=== PATIENT | male | born 1980 | race Caucasian/White ===

== ENCOUNTER 2021-12-29 06:13 | Day surgery (SDC) | payer SELFPAY ==
[2021-12-28 10:50] LABS: BASOPHILS # (AUTO) 0.1 K/uL (0.00-0.22); BASOPHILS % (AUTO) 1.2 % (0.0-2.0); EOSINOPHILS # (AUTO) 0.1 K/uL (0-0.4); EOSINOPHILS % (AUTO) 2.4 % (0.0-4.0); HEMATOCRIT 48.1 % (36-52); HEMOGLOBIN 16.1 g/dL (12.0-18.0); LYMPHOCYTES # (AUTO) 2.4 K/uL (2.0-11.5); LYMPHOCYTES % (AUTO) 43.2 % (20.5-51.1); MEAN CORPUSCULAR HEMOGLOBIN 29 pg (27-31); MEAN CORPUSCULAR HGB CONC 34 g/dL (33-37); MEAN CORPUSCULAR VOLUME 87.2 fL (80-94); MONOCYTES # (AUTO) 0.5 K/uL (0.8-1.0); MONOCYTES % (AUTO) 8.1 % (1.7-9.3); NEUTROPHILS # (AUTO) 2.5 K/uL (1.8-7.7); NEUTROPHILS % (AUTO) 45.1 % (42.2-75.2); PLATELET COUNT (AUTO) 296 K/uL (140-450); RED BLOOD CELL COUNT(AUTO) 5.52 MIL/uL (4.20-6.10); RED CELL DISTRIBUTION WIDTH 14.1 % (11.6-13.7); WHITE BLOOD COUNT (AUTO) 5.6 K/uL (4.8-10.8)
[2021-12-28 11:05] LABS: ANION GAP 10.7 (8-16); CARBON DIOXIDE 31.1 mmol/L (21-32); CREATININE 0.9 mg/dL (0.6-1.3); POTASSIUM 5.8 mmol/L (3.5-5.1)
[~2021-12-29] VITALS: Ht 185.4 cm; Wt 142.0 kg
[2021-12-29] MEDS ORDERED: BUPIVACAINE-MPF 0.25% 30 ML VIAL INJ ONE (07:55)
[2021-12-29] MEDS ORDERED: LIDOCAINE 1% 500 MG/50 ML VIAL ONE (07:55)
[2021-12-29] MEDS ORDERED: ALBUTEROL 0.083% 2.5 MG/3 ML NEBU INH PRN (09:10)
[2021-12-29] MEDS ORDERED: ALBUTEROL 0.083% 2.5 MG/3 ML NEBU INH ONE (09:11)
--- NOTE | 2021-12-29 09:11 | NUR ---
CALLED FOR BREATHING TX STAT FOR OR PT.
[2021-12-29] MEDS ORDERED: SEVOFLURANE 250 ML BTL INH ONE (09:17)
[2021-12-29] MEDS ORDERED: LIDOCAINE/EPI MPF 1%1:200000 30 ML VIAL INJ ONE (09:33)
[2021-12-29] MEDS ORDERED: PROPOFOL 200 MG/20 ML VIAL IV ONE ×2 (09:57)
[2021-12-29] MEDS ORDERED: SUCCINYLCHOLINE CHLORIDE 200 MG/10 ML VIAL IVP ONE (09:57)
[2021-12-29] MEDS ORDERED: KETOROLAC 30 MG/ML VIAL ONE (09:58)
[2021-12-29] MEDS ORDERED: ONDANSETRON 4 MG/2 ML VIAL ONE (09:58)
[2021-12-29] MEDS ORDERED: LABETALOL 20 MG/4 ML VIAL IVP PRN (10:25)
[2021-12-29] MEDS ORDERED: diphenhydrAMINE 50 MG/ML VIAL IVP PRN (10:25)
[2021-12-29] MEDS ORDERED: METOCLOPRAMIDE 10 MG/2 ML INJ VIAL IVP PRN (10:25)
[2021-12-29] MEDS ORDERED: LACTATED RINGERS 1,000 ML IV PRN (10:25)
[2021-12-29] MEDS ORDERED: hydrALAZINE 20 MG/ML VIAL IVP PRN (10:27)
[2021-12-29] MEDS: HYDROmorphone 1 MG/ML AMP IVP PRN ×3 (10:56→11:16)
[2021-12-29] MEDS ORDERED: HYDROmorphone PFS 2 MG/ML SYR ONE (10:59)
== END 2021-12-29 12:40 | disposition home or self-care (01) ==
LOC: MMU 06:13 → MDS 06:13
PROVIDERS: ATTEND Surgery
DX: K60.2 Anal fissure, unspecified (principal); K64.9 Unspecified hemorrhoids; E66.9 Obesity, unspecified; Z20.822 Contact with and (suspected) exposure to COVID-19; Z68.41 Body mass index [BMI] 40.0-44.9, adult
CPT/HCPCS: 36415; 46257; 71045; 80048; 84132; 85025; 87426; 88307; 93005; 94640; 94760; J0330; J1170; J1885; J2001; J2405; J2704; J3490; J7613